=== PATIENT | male | born 1995 | race American Indian/Alaskan Native ===

== ENCOUNTER 2018-08-13 22:05 | Emergency (ER) | payer OTHER ==
[2018-08-13 22:15] VITALS: BP 126/80; PULSE 64; RESP 18; TEMP 98; O2SAT 98
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
== END 2018-08-13 23:43 | disposition home or self-care (01) ==
LOC: C.ER 22:05 → SUPCPDRO 22:05 → C.ER 23:43
DX: Z00.00 Encounter for general adult medical examination without abnormal findings (principal); Z59.0 Homelessness

== ENCOUNTER 2019-01-05 13:52 | Emergency (ER) | payer OTHER ==
[2019-01-05 14:10] VITALS: BP 153/79; PULSE 80; RESP 18; TEMP 98.8; O2SAT 100
[2019-01-05] MEDS ORDERED: Amoxicillin-Clav 875-125 mg Tab PO STA (14:22)
[2019-01-05] MEDS ORDERED: Tdap Vaccine 0.5 ml Vial (10-64 yrs) IM ONE ×2 (14:22→14:37)
[2019-01-05] MEDS ORDERED: Amoxicillin-Clav 875-125 mg Tab PO ONE (14:36)
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
--- NOTE | 2019-01-05 17:26 | RAD ---
PROCEDURE: Right Hand Radiographs. HISTORY: hand swelling COMPARISON: None. FINDINGS: BONES: There is acute fracture at the distal portion of the 4th metacarpal bone. JOINTS: Normal. No osteoarthritic changes. SOFT TISSUES: Normal. OTHER FINDINGS: None. IMPRESSION: Acute fracture of the distal 4th metacarpal bone.
== END 2019-01-05 15:34 | disposition home or self-care (01) ==
LOC: C.ER 13:52
DX: S62.394A Other fracture of fourth metacarpal bone, right hand, initial encounter for closed fracture (principal); S60.414A Abrasion of right ring finger, initial encounter; S60.416A Abrasion of right little finger, initial encounter; Y04.0XXA Assault by unarmed brawl or fight, initial encounter
CPT/HCPCS: 29125; 73130; 90471; 90715; 96372; 99285; J1885

== ENCOUNTER 2019-02-23 15:59 | Emergency (ER) | payer OTHER ==
[2019-02-23 16:07] VITALS: RESP 20
[2019-02-23 16:54] LABS: URINE BILIRUBIN NEGATIVE (NEGATIVE); URINE BLOOD NEGATIVE (NEGATIVE); URINE CLARITY Hazy (Clear); URINE COLOR Yellow (YELLOW); URINE GLUCOSE (UA) NORMAL (Normal); URINE LEUKOCYTE ESTERASE NEG Leu/uL (Negative); URINE PROTEIN NEGATIVE (NEGATIVE)
[2019-02-23] MEDS ORDERED: cefTRIAXone 250 MG, Lidocaine Hydrochloride 1% 1 ML IM ONE (17:15)
--- NOTE | 2019-02-23 17:15 | C.PDOC ---
Time Seen by Provider: 02/23/19 16:01 Chief Complaint (Nursing): Male Genitourinary Past Medical History Vital Signs: Last Vital Signs Temp 98.4 F 02/23/19 16:02 Pulse 81 02/23/19 16:02 Resp 20 02/23/19 16:02 BP 128/75 02/23/19 16:02 Pulse Ox 97 02/23/19 16:02 - Medical History PMH: Anxiety - Social History Hx Alcohol Use: Yes Hx Substance Use: Yes (marijuana) - Immunization History Hx Tetanus Toxoid Vaccination: No Hx Influenza Vaccination: No Hx Pneumococcal Vaccination: No ED Course And Treatment - Laboratory Results Lab Results: Urine Color Yellow (YELLOW) 02/23/19 16:44 Urine Clarity Hazy (Clear) 02/23/19 16:44 Urine pH 6.0 (5.0-8.0) 02/23/19 16:44 Ur Specific [place] 1.029 (1.003-1.030) 02/23/19 16:44 Urine Protein Negative mg/dL (NEGATIVE) 02/23/19 16:44 Urine Glucose (UA) Normal mg/dL (Normal) 02/23/19 16:44 Urine Ketones Negative mg/dL (NEGATIVE) 02/23/19 16:44 Urine Blood Negative (NEGATIVE) 02/23/19 16:44 Urine Nitrate Negative (NEGATIVE) 02/23/19 16:44 Urine Bilirubin Negative (NEGATIVE) 02/23/19 16:44 Urine Urobilinogen 4.0 mg/dL (0.2-1.0) 02/23/19 16:44 Ur Leukocyte Esterase Neg Alfonso/uL (Negative) 02/23/19 16:44 Urine WBC (Auto) 1 /hpf (0-5) 02/23/19 16:44 Urine RBC (Auto) < 1 /hpf (0-3) 02/23/19 16:44 O2 Sat by Pulse Oximetry: 97 Disposition - Disposition Referrals: Herve Rojas MD [Staff Provider] - Disposition: HOME/ ROUTINE Disposition Time: 17:14 Condition: GOOD Additional Instructions: you have been treated for Chlamydia, you should not have oral, anal or vaginal sex until 7 days after your treatment is over. Have your partners tested and treated. Instructions: Urethritis (DC) - Clinical Impression Clinical Impression: Urethritis
--- NOTE | 2019-02-23 17:15 | C.PDOC ---
History Of Present Illness 24 y/o male presents to ED complaining of dysuria for the past 2 weeks. Patient states he had a UTI last year and was treated for it. Patient denies any back pain, abdominal pain, hematuria, or other symptoms. Time Seen by Provider: 02/23/19 16:01 Chief Complaint (Nursing): Male Genitourinary History Per: Patient History/Exam Limitations: no limitations Onset/Duration Of Symptoms: Days Current Symptoms Are (Timing): Still Present Past Medical History Reviewed: Historical Data, Nursing Documentation, Vital Signs Vital Signs: Last Vital Signs Temp 98.4 F 02/23/19 16:02 Pulse 81 02/23/19 16:02 Resp 20 02/23/19 16:02 BP 128/75 02/23/19 16:02 Pulse Ox 97 02/23/19 16:02 - Medical History PMH: Anxiety Family History: States: No Known Family Hx - Social History Hx Alcohol Use: Yes Hx Substance Use: Yes (marijuana) - Immunization History Hx Tetanus Toxoid Vaccination: No Hx Influenza Vaccination: No Hx Pneumococcal Vaccination: No Review Of Systems Except As Marked, All Systems Reviewed And Found Negative. Gastrointestinal: Negative for: Vomiting, Abdominal Pain Genitourinary: Positive for: Dysuria. Negative for: Hematuria Musculoskeletal: Negative for: Back Pain Physical Exam - Physical Exam Appears: Non-toxic, No Acute Distress Skin: Warm, Dry Head: Atraumatic, Normacephalic Eye(s): bilateral: Normal Inspection Oral Mucosa: Moist Neck: Supple Cardiovascular: Rhythm Regular, No Murmur Respiratory: Normal Breath Sounds, No Rales, No Rhonchi, No Wheezing Gastrointestinal/Abdominal: Soft, No Tenderness Extremity: Bilateral: Atraumatic, Normal ROM Neurological/Psych: Oriented x3, Normal Speech ED Course And Treatment - Laboratory Results Lab Results: Urine Color Yellow (YELLOW) 02/23/19 16:44 Urine Clarity Hazy (Clear) 02/23/19 16:44 Urine pH 6.0 (5.0-8.0) 02/23/19 16:44 Ur Specific [place] 1.029 (1.003-1.030) 02/23/19 16:44 Urine Protein Negative mg/dL (NEGATIVE) 02/23/19 16:44 Urine Glucose (UA) Normal mg/dL (Normal) 02/23/19 16:44 Urine Ketones Negative mg/dL (NEGATIVE) 02/23/19 16:44 Urine Blood Negative (NEGATIVE) 02/23/19 16:44 Urine Nitrate Negative (NEGATIVE) 02/23/19 16:44 Urine Bilirubin Negative (NEGATIVE) 02/23/19 16:44 Urine Urobilinogen 4.0 mg/dL (0.2-1.0) 02/23/19 16:44 Ur Leukocyte Esterase Neg Alfonso/uL (Negative) 02/23/19 16:44 Urine WBC (Auto) 1 /hpf (0-5) 02/23/19 16:44 Urine RBC (Auto) < 1 /hpf (0-3) 02/23/19 16:44 O2 Sat by Pulse Oximetry: 97 (RA) Pulse Ox Interpretation: Normal Medical Decision Making Medical Decision Making: Plan: --Chlamydia/GC Test --UA Disposition - Disposition Referrals: Herve Rojas MD [Staff Provider] - Disposition: HOME/ ROUTINE Disposition Time: 18:02 Condition: GOOD Additional Instructions: You have been treated for Chlamydia and Gonorrhea, you should not have oral, anal or vaginal sex until 7 days after your treatment is over. You must Have your partners tested and treated. Return if worsened. Instructions: Urethritis (DC) Forms: [employer] (Amharic) - Clinical Impression Clinical Impression: Urethritis - PA / INVOICE CONTROL CLERK / Resident Statement MD/DO has reviewed & agrees with the documentation as recorded. - Scribe Statement The provider has reviewed the documentation as recorded by the Scribe Ophelia Hernandez All medical record entries made by the Scribe were at my direction and personally dictated by me. I have reviewed the chart and agree that the record accurately reflects my personal performance of the history, physical exam, medical decision making, and the department course for this patient. I have also personally directed, reviewed, and agree with the discharge instructions and disposition.
[2019-02-23 18:25] VITALS: BP 120/88; PULSE 58; TEMP 98.9; O2SAT 100
== END 2019-02-23 18:25 | disposition home or self-care (01) ==
LOC: C.ER 15:59
DX: N34.2 Other urethritis (principal)
CPT/HCPCS: 81001; 87491; 87591; 96372; 99284; J0696